=== PATIENT | female | born 1980 | race Caucasian/White ===

== ENCOUNTER 2019-12-12 14:29 | Emergency (ER) | payer BC ==
--- NOTE | 2019-12-12 14:59 | EDM.PDOC ---
ED HPI GENERAL MEDICAL PROBLEM - General Chief Complaint: Lower Extremity Injury/Pain Stated Complaint: L ANKLE INJURY Time Seen by Provider: 12/12/19 14:40 Source of Information: Reports: Patient History Limitations: Reports: No Limitations - History of Present Illness INITIAL COMMENTS - FREE TEXT/NARRATIVE: The patient presents with left ankle and foot pain. She said she was stepping down off of a step and twisted her left ankle. She has swelling to the lateral ankle. She has pain when bearing weight. She has no other injuries. Onset: Sudden Duration: Hour(s): (1) Location: Reports: Lower Extremity, Left (ankle and foot) Quality: Reports: Sharp Severity: Moderate Improves with: Reports: Immobilization Worsens with: Reports: Movement Context: Reports: Trauma (twisted left ankle) Associated Symptoms: Reports: No Other Symptoms Left Ankle Pain Score (Numeric/FACES): 4 - Related Data Allergies Allergy/AdvReac Type Severity Reaction Status Date / Time No Known Allergies Allergy Verified 12/12/19 14:42 Home Meds: Home Meds Famotidine [Pepcid] 40 mg PO DAILY 12/12/19 [History] Hydroxychloroquine [Plaquenil] 200 mg PO DAILY 12/12/19 [History] Levothyroxine 75 mcg PO DAILY 12/12/19 [History] buPROPion [Wellbutrin SR] 300 mg PO DAILY 12/12/19 [History] busPIRone [Buspar] 5 mg PO DAILY 12/12/19 [History] Past Medical History Musculoskeletal History: Reports: RA Psychiatric History: Reports: Anxiety Endocrine/Metabolic History: Reports: Other (See Below) Other Endocrine/Metabolic History: Anabel's - Infectious Disease History Infectious Disease History: Reports: None - Past Surgical History GI Surgical History: Reports: Cholecystectomy Social & Family History - Tobacco Use Tobacco Use Status *Q: Never Tobacco User Second Hand Smoke Exposure: No - Caffeine Use Caffeine Use: Reports: None - Recreational Drug Use Recreational Drug Use: No Review of Systems - Review of Systems Review Of Systems: See Below Constitutional: Reports: No Symptoms Eyes: Reports: No Symptoms Ears: Reports: No Symptoms Nose: Reports: No Symptoms Mouth/Throat: Reports: No Symptoms Respiratory: Reports: No Symptoms Cardiovascular: Reports: No Symptoms GI/Abdominal: Reports: No Symptoms Genitourinary: Reports: No Symptoms Musculoskeletal: Reports: Other (Left ankle pain and foot pain) ED EXAM, GENERAL - Physical Exam Exam: See Below Exam Limited By: No Limitations General Appearance: Alert, No Apparent Distress Ears: Normal External Exam Nose: Normal Inspection Head: Atraumatic, Normocephalic Neck: Normal Inspection Respiratory/Chest: No Respiratory Distress Extremities: Other (Laft lateral ankle swelling with pain upon palpaton and good sensation distally. She does have pain upon palpation to the left lateral foot. She has good sensation and pulses distally.) Course - Vital Signs Last Recorded V/S: Last Vital Signs Temp 97 F 12/12/19 14:39 Pulse 100 12/12/19 14:39 Resp 16 12/12/19 14:39 BP 117/95 H 12/12/19 14:39 Pulse Ox 99 12/12/19 14:39 - Orders/Labs/Meds Orders: Active Orders 24 hr Category Date Time Status Ankle Min 3V Lt [CR] Stat Exams 12/12/19 14:44 Taken Foot Comp Min 3V Lt [CR] Stat Exams 12/12/19 14:44 Taken - Re-Assessments/Exams Free Text/Narrative Re-Assessment/Exam: 12/12/19 14:59 I have ordered x-rays of her ankle and foot. 12/12/19 15:19 Her x-rays both look good. I will get her crutches and a stirrup splint. Departure - Departure Time of Disposition: 15:20 Disposition: Home, Self-Care 01 Condition: Good Clinical Impression: Ankle sprain Qualifiers: Encounter type: initial encounter Involved ligament of ankle: unspecified ligament Laterality: left Qualified Code(s): S93.402A - Sprain of unspecified ligament of left ankle, initial encounter - Discharge Information *PRESCRIPTION DRUG MONITORING PROGRAM REVIEWED*: Not Applicable *COPY OF PRESCRIPTION DRUG MONITORING REPORT IN PATIENT [place]: Not Applicable Referrals: Waleska Vieyar NP [Primary Care Provider] - 1 Week Forms: ED Department Discharge Additional Instructions: Ice your ankle for 15 minutes 3 times per day for 2 days. Try to elevate your ankle as much as you can for 2 days. Take tylenol or motrin as needed for pain. Wear the splint and use the crutches as needed for pain. Please return if you are worse. Follow up with Waleska Vieyra if you are not better within a week. Sepsis Event Note (ED) - Evaluation Sepsis Screening Result: No Definite Risk - Focused Exam Vital Signs: Vital Signs Temp Pulse Resp BP Pulse Ox 12/12/19 14:39 97 F 100 16 117/95 H 99 - My Orders Last 24 Hours: My Active Orders 12/12/19 14:44 Ankle Min 3V Lt [CR] Stat Foot Comp Min 3V Lt [CR] Stat - Assessment/Plan Last 24 Hours: My Active Orders 12/12/19 14:44 Ankle Min 3V Lt [CR] Stat Foot Comp Min 3V Lt [CR] Stat
--- NOTE | 2019-12-16 13:21 | CR ---
PROCEDURE INFORMATION: Exam: XR Left Ankle Exam date and time: 12/12/2019 2:33 PM Age: 39 years old Clinical indication: Pain; Left; Patient HX: Twisted ankle/foot, heard a loud pop sound TECHNIQUE: Imaging protocol: XR Left ankle. Views: 3 or more views. COMPARISON: No relevant prior studies available. FINDINGS: Bones/joints: Normal. Soft tissues: Normal. IMPRESSION: No acute findings. Thank you for allowing us to participate in the care of your patient. Dictated and Authenticated by: Migel Arce MD 12/12/2019 4:10 PM Central Time ([place] & [place]) [place]
--- NOTE | 2019-12-16 13:22 | CR ---
PROCEDURE INFORMATION: Exam: XR Left Foot Complete Exam date and time: 12/12/2019 2:33 PM Age: 39 years old Clinical indication: Pain; Foot; Left; Patient HX: Twisted ankle TECHNIQUE: Imaging protocol: XR Left foot. Views: 3 or more views. COMPARISON: No relevant prior studies available. FINDINGS: Bones/joints: Normal. Soft tissues: Normal. IMPRESSION: No acute findings. Thank you for allowing us to participate in the care of your patient. Dictated and Authenticated by: Migel Arce MD 12/12/2019 4:08 PM Central Time ([place] & [place]) [place]
== END 2019-12-12 15:45 | disposition home or self-care (01) ==
LOC: JD.ED 14:29
DX: S93.402A Sprain of unspecified ligament of left ankle, initial encounter (principal); F41.9 Anxiety disorder, unspecified; Z90.49 Acquired absence of other specified parts of digestive tract; Z79.899 Other long term (current) drug therapy; X50.1XXA Overexertion from prolonged static or awkward postures, initial encounter
CPT/HCPCS: 73610-26-LT; 73610-LT; 73630-26-LT; 73630-LT; 99282; 99283-25

== ENCOUNTER 2021-03-26 15:20 | Inpatient (IN) | payer BC ==
[2021-03-26] MEDS ORDERED: Sodium Chloride 0.9% 10 ML Syringe FLUSH PRN ×2 (15:58→21:54)
[2021-03-26] MEDS ORDERED: Lactated Ringers 1,000 ML IV ONE ×2 (15:58→18:00)
[2021-03-26] MEDS ORDERED: Acetaminophen 325 MG Tab PO ONE (15:59)
[2021-03-26 16:36] LABS: CORONAVIRUS COVID-19 NAA POSITIVE (NEGATIVE)
[2021-03-26] MEDS ORDERED: REMDESIVIR 200 MG in Sodium Chloride 0.9% 250 ML IV ONE (21:54)
[2021-03-26] MEDS ORDERED: Oxytocin/Lactated Ringers 10 UNIT/1,000 ML BAG IV SCH (21:54)
[2021-03-26] MEDS ORDERED: Lactated Ringers 1,000 ML IV SCH (21:54)
[2021-03-26] MEDS ORDERED: Nalbuphine 10 MG/1 ML Vial IVPUSH PRN (21:54)
[2021-03-26] MEDS: Acetaminophen 325 MG Tab PO PRN (23:13)
[2021-03-26] MEDS ORDERED: fentaNYL 100 MCG/2 ML SDV EPIDUR PRN (23:20)
[2021-03-26] MEDS ORDERED: ePHEDrine 50 MG/ML SDV IVPUSH PRN (23:20)
[2021-03-26] MEDS ORDERED: diphenhydrAMINE 50 MG/ML SDV IVPUSH PRN (23:20)
[2021-03-27] MEDS ORDERED: Oxytocin/Lactated Ringers 10 UNIT/1,000 ML BAG IV SCH (02:00)
[2021-03-27] MEDS: Bupivacaine/fentaNYL/NS 100 ML Bag EPIDUR PRN ×2 (02:23→10:40)
[2021-03-27] MEDS ORDERED: Levothyroxine 75 MCG Tab PO SCH (06:00)
[2021-03-27] MEDS ORDERED: busPIRone 5 MG Tab PO SCH (09:00)
[2021-03-27] MEDS ORDERED: Sodium Chloride 0.9% 10 ML Syringe FLUSH SCH (09:00)
[2021-03-27] MEDS ORDERED: ePHEDrine 50 MG/ML SDV ONE (11:00)
[2021-03-27] MEDS ORDERED: Bupivacaine 0.25% 10 ML SDV ONE (11:00)
[2021-03-27] MEDS: Acetaminophen 325 MG Tab PO PRN ×2 (13:37→21:15)
[2021-03-27] MEDS ORDERED: Ibuprofen 600 MG Tab PO PRN (14:37)
[2021-03-27] MEDS ORDERED: Docusate Sodium 100 MG Cap PO PRN (14:37)
[2021-03-27] MEDS ORDERED: Benzocaine/Menthol 20%-0.5% Spray 78 GM Cannister TOP PRN (14:37)
[2021-03-27] MEDS ORDERED: Witch Hazel Medicated Pads 40/Jar TOP PRN (14:37)
[2021-03-27] MEDS ORDERED: Phenol 1.4% Oral Spray 177 ML Bottle MUCMEM PRN (20:49)
[2021-03-27] MEDS ORDERED: Pantoprazole 40 MG Tab.CR PO SCH ×2 (21:00)
[2021-03-28] MEDS: Acetaminophen 325 MG Tab PO PRN ×2 (04:09→09:33)
== END 2021-03-28 14:25 | disposition home or self-care (01) | DRG 560 ==
LOC: JD.OBCHECK 15:20 → JD.OB 15:31 → JD.OBCHECK 21:39 → JD.OB 21:40 → OBSVTOIN 03-27 12:53 → JD.OB 03-27 12:54
PROVIDERS: ADMIT Obstetrics & Gynecology; ATTEND Obstetrics & Gynecology
PROC: 10E0XZZ Delivery of Products of Conception, External Approach (ICD-10-PCS; principal; 2021-03-27)
PROC: 10907ZC Drainage of Amniotic Fluid, Therapeutic from Products of Conception, Via Natural or Artificial Opening (ICD-10-PCS; principal; 2021-03-27)
PROC: 3E0R3BZ Introduction of Anesthetic Agent into Spinal Canal, Percutaneous Approach (ICD-10-PCS; principal; 2021-03-27)
PROC: 10H07YZ Insertion of Other Device into Products of Conception, Via Natural or Artificial Opening (ICD-10-PCS; principal; 2021-03-27)
PROC: 00HU33Z Insertion of Infusion Device into Spinal Canal, Percutaneous Approach (ICD-10-PCS; principal; 2021-03-27)
DX: O13.4 Gestational [pregnancy-induced] hypertension without significant proteinuria, complicating childbirth (principal); O98.52 Other viral diseases complicating childbirth; U07.1 COVID-19; Z37.0 Single live birth; Z3A.37 37 weeks gestation of pregnancy; O99.344 Other mental disorders complicating childbirth; F41.9 Anxiety disorder, unspecified; E06.3 Autoimmune thyroiditis; O99.284 Endocrine, nutritional and metabolic diseases complicating childbirth
CPT/HCPCS: 01967; 0241U; 36415; 51702; 59025; 59409; 80053; 82570; 83615; 84156; 85025; 86592; A9270-GY; J2590; J3010; J3490; J7120

== ENCOUNTER 2021-07-09 07:40 | Emergency (ER) | payer BC ==
[2021-07-09] MEDS ORDERED: Metoclopramide 10 MG/2 ML SDV IVPUSH ONE (08:07)
[2021-07-09] MEDS ORDERED: diphenhydrAMINE 50 MG/ML SDV IVPUSH ONE (08:08)
[2021-07-09] MEDS ORDERED: HYDROmorphone 0.5 MG/0.5 ML Syringe IVPUSH ONE (08:09)
[2021-07-09] MEDS ORDERED: Dextrose 5%-0.9% NaCl 1,000 ML IV SCH (08:15)
[2021-07-09] MEDS ORDERED: Famotidine 20 MG/2 ML SDV IVPUSH ONE (08:18)
== END 2021-07-09 10:29 | disposition home or self-care (01) ==
LOC: JD.ED 07:40
DX: A08.4 Viral intestinal infection, unspecified (principal); R10.9 Unspecified abdominal pain; E03.9 Hypothyroidism, unspecified; Z90.49 Acquired absence of other specified parts of digestive tract; Z79.899 Other long term (current) drug therapy; Z91.018 Allergy to other foods
CPT/HCPCS: 36415; 80053; 83630; 85025; 86140; 87045; 87046; 87493; 87899; 96361; 96374; 96375; 99284; J1170; J1200; J2765; J3490; J7042

== ENCOUNTER 2022-08-26 17:26 | Emergency (ER) | payer BC, OTHER ==
[2022-08-26] MEDS ORDERED: Meclizine 25 MG Tab PO ONE (18:09)
[2022-08-26 18:39] LABS: BASOPHILS ABSOLUTE AUTO 0.03 K/mm3 (0.01-0.08); BASOPHILS PERCENT AUTO 0.2 % (0.1-1.2); EOSINOPHILS ABSOLUTE AUTO 0.14 K/mm3 (0.04-0.36); EOSINOPHILS PERCENT AUTO 1.1 (0.7-5.8); HEMATOCRIT 41.5 % (34.1-44.9); HEMOGLOBIN 13.6 gm/dl (11.2-15.7); IMMATURE GRAN ABSOLUTE AUTO 0.04 K/mm3 (0.00-0.10); IMMATURE GRAN PERCENT AUTO 0.3 % (<=1.0); LYMPHOCYTES ABSOLUTE AUTO 4.05 K/mm3 (1.18-3.74); LYMPHOCYTES PERCENT AUTO 31.4 % (19.3-51.7); MEAN CORPUSCULAR HEMOGLOBIN 30.4 pg (25.6-32.2); MEAN CORPUSCULAR HGB CONC 32.8 g/dl (32.2-35.5); MEAN CORPUSCULAR VOLUME 92.6 fl (79.4-94.8); MONOCYTES ABSOLUTE AUTO 0.64 K/mm3 (0.24-0.36); NEUTROPHILS ABSOLUTE AUTO 8.01 K/mm3 (1.56-6.13); PLATELET COUNT,PLT 381 K/mm3 (182-369); RED BLOOD CELL COUNT 4.48 M/mm3 (3.98-5.22); WHITE BLOOD CELL COUNT,WBC 12.91 K/mm3 (3.98-10.04)
[2022-08-26 19:02] LABS: A/G RATIO 0.9 (1-2); ALBUMIN 3.9 g/dl (3.4-5.0); ANION GAP 12.8 (5-15); BILIRUBIN TOTAL 0.2 mg/dL (0.2-1.0); BUN/CREATININE RATIO 13.3 (14-18); C-REACTIVE PROTEIN 0.9 mg/dL (<1.0); CREATININE 0.9 mg/dL (0.55-1.02); EST CRCL DRUG DOSING (CG) 88.06 mL/min; POTASSIUM,K 3.8 mEq/L (3.5-5.1); PROTEIN TOTAL,TP 8.3 g/dl (6.4-8.2)
[2022-08-26] MEDS ORDERED: Ketorolac 30 MG/ML SDV IVPUSH ONE (19:54)
[2022-08-26] MEDS ORDERED: Sodium Chloride 0.9% 1,000 ML IV ONE (19:54)
[2022-08-26] MEDS ORDERED: diphenhydrAMINE 50 MG/ML SDV IVPUSH ONE (19:54)
[2022-08-26] MEDS ORDERED: Metoclopramide 10 MG/2 ML SDV IVPUSH ONE (19:54)
== END 2022-08-26 23:19 | disposition home or self-care (01) ==
LOC: JD.ED 17:26
DX: R42 Dizziness and giddiness (principal); R51.9 Headache, unspecified; J45.909 Unspecified asthma, uncomplicated; E03.9 Hypothyroidism, unspecified; K21.9 Gastro-esophageal reflux disease without esophagitis; Z86.16 Personal history of COVID-19; Z91.018 Allergy to other foods; Z79.899 Other long term (current) drug therapy
CPT/HCPCS: 36415; 70450; 80053; 85025; 86140; 93005; 96374; 96375; 99284; A9270; J1200; J1885; J2765; J7030; 93010

== ENCOUNTER 2024-08-02 16:55 | Emergency (ER) | payer BC ==
[2024-08-02 17:45] LABS: BASOPHILS ABSOLUTE AUTO 0.1 K/mm3 (0.0-0.2); BASOPHILS PERCENT AUTO 0.6 % (0.0-1.0); EOSINOPHILS ABSOLUTE AUTO 0.1 K/mm3 (0.0-0.4); HEMATOCRIT 42.3 % (37.0-47.0); HEMOGLOBIN 13.7 gm/dl (12.0-16.0); IMMATURE GRAN ABSOLUTE AUTO 0.08 K/mm3 (0.00-0.05); IMMATURE GRAN PERCENT AUTO 0.6 % (0.0-0.4); LYMPHOCYTES ABSOLUTE AUTO 4.2 K/mm3 (1.0-4.8); LYMPHOCYTES PERCENT AUTO 30.8 % (24.0-44.0); MEAN CORPUSCULAR HEMOGLOBIN 29.1 pg (28.0-32.0); MEAN CORPUSCULAR HGB CONC 32.4 g/dl (32.0-36.0); MEAN PLATELET VOLUME 9.5 fl (9.4-12.3); MONOCYTES ABSOLUTE AUTO 0.6 K/mm3 (0.0-0.8); MONOCYTES PERCENT AUTO 4.6 % (0.0-8.0); NEUTROPHILS ABSOLUTE AUTO 8.5 K/mm3 (1.8-7.7); NEUTROPHILS PERCENT AUTO 62.4 % (41.0-71.0); PLATELET COUNT,PLT 387 K/mm3 (150-400); WHITE BLOOD CELL COUNT,WBC 13.57 K/mm3 (3.9-11.3)
[2024-08-02] MEDS: Sodium Chloride 0.9% 1,000 ML IV ONE (17:57)
[2024-08-02 18:16] LABS: SLIDE REVIEW ABNORMAL SMEAR
[2024-08-02 18:18] LABS: A/G RATIO 0.9 (1-2); ALANINE AMINOTRANSFERASE,ALT 55 U/L (14-59); ALKALINE PHOSPHATASE 97 U/L (46-116); ANION GAP 11.7 (5-15); ASPARTATE AMNIOTRANSFERASE,AST 21 U/L (15-37); BILIRUBIN TOTAL 0.2 mg/dL (0.2-1.0); BLOOD UREA NITROGEN,BUN 12 mg/dL (7-18); BUN/CREATININE RATIO 10.9 (14-18); CALCIUM 9.9 mg/dL (8.5-10.1); CARBON DIOXIDE,CO2 28 mEq/L (21-32); CHLORIDE,CL 105 mEq/L (98-107); CREATININE 1.1 mg/dL (0.55-1.02); EST CRCL DRUG DOSING (CG) 70.58 mL/min; ESTIMATED GFR 64 mL/min (>60); GLUCOSE RANDOM 95 mg/dL (70-99); POTASSIUM,K 3.7 mEq/L (3.5-5.1); PROTEIN TOTAL,TP 8.6 g/dl (6.4-8.2); SODIUM,NA 141 mEq/L (136-145); TSH 1.446 uIU/mL (0.358-3.74)
[2024-08-02 18:24] LABS: TROPONIN I HIGH SENSITIVITY < 4 pg/mL (<=51)
[2024-08-02 18:27] LABS: PROTHROMBIN TIME 9.6 SECONDS (9.7-12.0)
[2024-08-02 18:28] LABS: PTT,PARTIAL THROMBOPLSTIN TIME 28.7 SECONDS (21.7-31.4)
[2024-08-02 18:41] LABS: IRON,FE 45 ug/dL (50-170); PERCENT FE SATURATION 16 % (20-55); TRANSFERRIN 231 mg/dL (202-364)
[2024-08-02 18:42] LABS: INR < 0.93
[2024-08-02 18:52] LABS: TOTAL IRON BINDING CAPACITY 289 ug/dL (100-400)
[2024-08-02] MEDS: Meclizine 25 MG Tab PO ONE (19:53)
== END 2024-08-02 20:32 | disposition home or self-care (01) ==
LOC: JD.ED 16:55
DX: R42 Dizziness and giddiness (principal); R00.2 Palpitations; J45.909 Unspecified asthma, uncomplicated; E03.9 Hypothyroidism, unspecified; Z86.16 Personal history of COVID-19; Z90.49 Acquired absence of other specified parts of digestive tract; Z91.018 Allergy to other foods; Z79.890 Hormone replacement therapy; Z79.899 Other long term (current) drug therapy
CPT/HCPCS: 36415; 71045; 80053; 83540; 83605; 83735; 84443; 84466; 84484; 85025; 85610; 85730; 93005; 96360; 96361; 99285; A9270; J7030; 99283

== ENCOUNTER 2025-01-13 07:48 | Emergency (ER) | payer BC ==
[2025-01-13] MEDS: Diphtheria,Pertussis(Acell),Tetanus Vaccine 0.5 ML Syringe IM ONE (09:32)
== END 2025-01-13 09:30 | disposition home or self-care (01) ==
LOC: JD.ED 07:48
DX: S61.213A Laceration without foreign body of left middle finger without damage to nail, initial encounter (principal); K21.9 Gastro-esophageal reflux disease without esophagitis; E03.9 Hypothyroidism, unspecified; Z91.018 Allergy to other foods; Z79.890 Hormone replacement therapy; Z79.899 Other long term (current) drug therapy; Z86.16 Personal history of COVID-19; W26.8XXA Contact with other sharp object(s), not elsewhere classified, initial encounter; Y93.89 Activity, other specified
CPT/HCPCS: 12001; 99282; J2003